=== PATIENT | male | born 1985 | race Caucasian/White ===

== ENCOUNTER 2018-08-17 16:15 | Emergency (ER) | payer OTHER, SELFPAY ==
[~2018-08-17] VITALS: Ht 170.2 cm; Wt 95.7 kg
[2018-08-17 16:35] VITALS: BP 152/85
[2018-08-17] MEDS ORDERED: ASPI-515 PO (16:57)
[2018-08-17] MEDS ORDERED: CARV3.122 PO (16:57)
[2018-08-17] MEDS ORDERED: HYDROcodone/APAP 5/325 TABLET ONE (17:19)
--- NOTE | 2018-08-17 17:24 | NUR ---
Patient/Caregiver given discharge instructions and they have confirmed that they understand the instructions. Patient ambulatory with steady gait. Family to drive patient home for safe DC.
[2018-08-17] MEDS ORDERED: HYDROcodone/APAP 5/325 TABLET PO ONE (17:30)
== END 2018-08-17 17:26 | disposition home or self-care (01) ==
LOC: ED 17:20
DX: K02.9 Dental caries, unspecified (principal); I48.91 Unspecified atrial fibrillation; I50.9 Heart failure, unspecified
CPT/HCPCS: 99283